=== PATIENT | female | born 1965 | race Caucasian/White ===

== ENCOUNTER 2016-07-25 10:04 | Outpatient (CLI) | payer BC ==
--- NOTE | 2016-07-26 17:39 | Mammography Report ---
DIGITAL SCREENING MAMMOGRAM: 07/25/2016 CLINICAL INDICATION: A 50-year-old, for screening. COMPARISON: 04/2013, 03/2011, 10/2009, 04/2008. TECHNIQUE: Routine CC and MLO projections were obtained of the breasts. FINDINGS: The breasts again demonstrate scattered fibroglandular densities bilaterally. Intramammary lymph nodes are stable. No suspicious masses, clustered microcalcifications, or regions of windows architect ural distortion are identified. IMPRESSION: BENIGN FINDINGS. RECOMMENDATION: ROUTINE ANNUAL SCREENING UNLESS OTHERWISE CLINICALLY INDICATED. BIRADS CATEGORY 2-BENIGN FINDINGS. STANDARD QUALIFYING STATEMENTS 1. This examination was reviewed with the aid of Computer-Aided Detection (CAD). 2. A negative or benign imaging report should not delay biopsy if clinically suspicious findings are present. Consider surgical consultation if warranted. More than 5% of cancers are not identified by i maging. 3. Dense breasts may obscure an underlying neoplasm. JOB #: [id number] EXT JOB #:[id number]
== END 2016-07-25 10:05 | disposition home or self-care (01) ==
LOC: DI.S 10:04
PROVIDERS: ATTEND Physician Assistant
DX: Z12.31 Encounter for screening mammogram for malignant neoplasm of breast (principal)
CPT/HCPCS: 77067

== ENCOUNTER 2016-11-30 12:06 | Outpatient (CLI) | payer BC ==
[2016-11-30 16:11] VITALS: BP 168/92
--- NOTE | 2016-12-01 03:35 | CARDIAC PROCEDURE NOTE ---
DATE OF SERVICE: 11/30/2016 00:00:00 PRIMARY CARE PHYSICIAN: Dr. Cecily Sandra ND. PROCEDURE: Stress echocardiogram. PROCEDURE SYMPTOMS: Fatigue, dyspnea on exertion, and heart murmur. CARDIAC RISK FACTORS: Include hyperlipidemia and diabetes. PREVIOUS CARDIAC PROCEDURES: None. CURRENT SYMPTOMATOLOGY: None. CLINICAL HISTORY: A 51-year-old female without known coronary artery disease. INITIAL RESTING VITAL SIGNS: Blood pressure 168/92, heart rate 85, height 62 inches, weight 238 pounds. PROCEDURE AND FINDINGS: The patient's identity and date were verified. Consent signed. After resting echocardiogram images were obtained, the patient performed treadmill exercise using a South protocol completing 7 minutes, 43 seconds and an estimated workload of 10.1 metabolic equivalents. Her predicted exercise time was 6 minutes 30 seconds to 7 minutes 45 seconds. Maximal blood pressure was 210/88 with a heart rate of 155 beats per minute or 93% of maximum predicted heart rate for age. The blood pressure response to exercise was within normal limits. The patient stopped because she rated exercise as very hard and was tiring. The resting ECG demonstrated normal sinus rhythm with late transition. There was less than 0.[address] segment depression. Post-exercise images were obtained on cessation of exercise. At 1 minute into recovery, she had PVCs including singles, couplets, and one 5 beat run of VT. From 2 minutes on through the remainder of the recovery time, there was no ectopy, and she had no chest pain; however, her ectopic beats were symptomatic. FINAL IMPRESSION 1. No ECG signs of ischemia, test incomplete, awaiting echocardiographic report. 2. Negative stress test clinically for angina. 3. One minute period of frequent PVCs including a 5 beat run of symptomatic nonsustained ventricular tachycardia occurring approximately one minute in recovery. 4. Hypertensive blood pressure readings. JOB #: [id number] EXT JOB #:[id number] [facility]
== END 2016-11-30 12:07 | disposition home or self-care (01) ==
LOC: DI 12:06
PROVIDERS: ATTEND Naturopath
DX: R01.2 Other cardiac sounds (principal); R53.83 Other fatigue; R06.00 Dyspnea, unspecified; R01.1 Cardiac murmur, unspecified; E78.5 Hyperlipidemia, unspecified; E11.9 Type 2 diabetes mellitus without complications; I49.3 Ventricular premature depolarization; R03.0 Elevated blood-pressure reading, without diagnosis of hypertension
CPT/HCPCS: 93351

== ENCOUNTER 2016-12-02 08:20 | Outpatient (CLI) | payer BC | END 2016-12-02 08:21 | disposition home or self-care (01) | LOC: DI 08:20 | PROVIDERS: ATTEND Naturopath | DX: R01.2 Other cardiac sounds (principal); I51.7 Cardiomegaly | CPT/HCPCS: 93306 ==

== ENCOUNTER 2017-01-09 16:00 | Outpatient (CLI) | payer BC | END 2017-01-09 16:01 | disposition home or self-care (01) | LOC: LAB 16:00 | PROVIDERS: ATTEND Orthopaedic Surgery | DX: M25.562 Pain in left knee (principal) | CPT/HCPCS: 36415; 85651; 86140 ==

== ENCOUNTER 2017-02-21 10:56 | Outpatient (CLI) | payer BC ==
--- NOTE | 2017-02-21 12:42 | XRAY Report ---
DATE OF SERVICE: 02/21/2017 COMPLETE LUMBAR SPINE: 02/21/2017 CLINICAL INDICATION: Back pain. FINDINGS: AP, lateral, oblique, coned down views of the lumbar spine demonstrate moderate degenerative disk and facet disease. There are bilateral L5 pars defects, with anterolisthesis of L5 on S1 by approximately 6 mm. There is no evidence of compression fracture. Minimal levoscoliosis is noted, which may be positional in nature. IMPRESSION: MODERATE DEGENERATIVE CHANGES. BILATERAL L5 PARS DEFECTS, WITH APPROXIMATELY 6 MM ANTEROLISTHESIS OF L5 ON S1. TD: 02/21/2017 13:40
== END 2017-02-21 10:57 | disposition home or self-care (01) ==
LOC: DI 10:56
PROVIDERS: ATTEND Orthopaedic Surgery
DX: M51.36 Other intervertebral disc degeneration, lumbar region (principal); M47.896 Other spondylosis, lumbar region; M43.06 Spondylolysis, lumbar region
CPT/HCPCS: 72110

== ENCOUNTER 2018-06-03 15:32 | Outpatient (CLI) | payer BC ==
--- NOTE | 2018-06-04 08:46 | Mammography Report ---
Reason: SCREENING MAMMO FOR MALIGNANT NEOPLASM OF THE [place] Procedure Date: 06/03/2018 Accession Number: [id number] / [id number] Procedure: RYLIE - Screening Mammo w/Jeramy CPT Code: FULL RESULT: EXAM: Screening Mammo w/Jeramy DATE: 06/03/2018 4:26 PM CLINICAL HISTORY: Screening examination. No reported risk factors. TECHNIQUE: (B) - Bilateral CC, laterally exaggerated CC, MLO views were obtained. COMPARISON: 07/25/2016 through 04/12/2011. PARENCHYMAL PATTERN: (A) - The breast(s) demonstrate(s) scattered fibroglandular densities. FINDINGS: A cluster of well-circumscribed isodense nodules in the left upper outer breast individually measuring up to 6 mm demonstrates long-term (greater than 2 years) stability and is therefore typically benign, suggestive of cysts. There are no suspicious masses, calcifications, or areas of distortion. IMPRESSION: Benign findings. BI-RADS category 2. RECOMMENDATION: (ANNUAL) - Recommend routine annual screening mammography. BI-RADS CATEGORY: (2) - Benign Findings. STANDARD QUALIFYING STATEMENTS: 1. This examination was not reviewed with the aid of Computer-Aided Detection (CAD). 2. A negative or benign imaging report should not preclude biopsy if clinically suspicious findings are present. 3. Dense breasts may obscure an underlying neoplasm. 4. This examination was reviewed with the aid of 3D breast imaging (tomosynthesis).
== END 2018-06-03 15:33 | disposition home or self-care (01) ==
LOC: DI 15:32
PROVIDERS: ATTEND Naturopath
DX: Z12.31 Encounter for screening mammogram for malignant neoplasm of breast (principal)
CPT/HCPCS: 77063; 77067

== ENCOUNTER 2018-08-14 07:26 | Outpatient (CLI) | payer BC ==
--- NOTE | 2018-08-14 14:39 | Ultrasound Report ---
Reason: UPPER ABDOMINAL PAIN,UNSPECIFIED Procedure Date: 08/14/2018 Accession Number: [id number] / [id number] Procedure: US - Abdomen Complete CPT Code: FULL RESULT: EXAM: ABDOMEN ULTRASOUND EXAM DATE: 08/14/2018 08:39 AM. CLINICAL HISTORY: UPPER ABDOMINAL Pain, unspecified. COMPARISON: 10/12/2010 pelvic ultrasound TECHNIQUE: Real-time scanning was performed with static images obtained. FINDINGS: Liver: Increased in size and heterogeneous echotexture. 18 cm. Main portal vein flow: Hepatopetal. Gallbladder: Normal. No stones, wall thickening, or sonographic Rosas's sign. Biliary System: Common bile duct measures 7 mm. No intrahepatic or extrahepatic ductal dilatation. Pancreas: Included portion is unremarkable. Kidneys: Right: 10.2 cm longitudinally. Normal. No contour-deforming mass, stones, or hydronephrosis. Left: 10.2 cm longitudinally. Slightly prominent left renal pelvis. No contour-deforming mass, stones, or hydronephrosis. Spleen: 9.1 cm. Normal in size and echotexture. Aorta and Inferior Vena Cava: Unremarkable. Free fluid: None. Other: Bilateral ureteral jets present. Prevoid bladder volume of 163 cc. Minimal post void residual volume 18 cc. IMPRESSION: Mild hepatomegaly and fatty infiltration of the liver. Otherwise negative abdomen ultrasound. RADIA
== END 2018-08-14 07:27 | disposition home or self-care (01) ==
LOC: DI 07:26
PROVIDERS: ATTEND Naturopath
DX: R10.10 Upper abdominal pain, unspecified (principal); K76.0 Fatty (change of) liver, not elsewhere classified
CPT/HCPCS: 76700

== ENCOUNTER 2018-09-09 15:37 | Outpatient (CLI) | payer BC ==
--- NOTE | 2018-09-11 10:51 | XRAY Report ---
Reason: CHRONIC L FOOT PAIN Procedure Date: 09/09/2018 Accession Number: [id number] / [id number] Procedure: XR - Foot 3 View LT CPT Code: FULL RESULT: EXAM: LEFT FOOT RADIOGRAPHY EXAM DATE: 09/09/2018 03:48 PM. CLINICAL HISTORY: Chronic left foot pain. COMPARISON: None. TECHNIQUE: 3 views. FINDINGS: Bones: Moderate inferior calcaneal and mild posterior calcaneal spurring. No fractures or bone lesions. Joints: Normal. No subluxations. Soft Tissues: Normal. No soft tissue swelling. IMPRESSION: Calcaneal spurring as described. No significant posttraumatic degenerative changes and no fracture or dislocation. RADIA
== END 2018-09-09 15:38 | disposition home or self-care (01) ==
LOC: DI 15:37
PROVIDERS: ATTEND Podiatrist
DX: M77.32 Calcaneal spur, left foot (principal)

== ENCOUNTER 2020-07-28 08:34 | Outpatient (CLI) | payer BC ==
[2020-07-28 16:28] LABS: THYROID STIMULATING HORMONE 0.8 uIU/mL (0.34-5.60)
[2020-07-28 16:31] LABS: FREE T4 (FREE THYROXINE) 1.1 ng/dL (0.58-1.64)
[2020-07-28 16:33] LABS: CHOL/HDL RATIO 4.5 (<4.4); CHOLESTEROL 305 mg/dL; HDL CHOLESTEROL 68 mg/dL; LDL CHOLESTEROL,CALCULATED 220 mg/dL; LDL/HDL RATIO 3.2 (<4.4); TRIGLYCERIDES 84 mg/dL; VLDL CHOLESTEROL 17 mg/dL
[2020-07-28 16:34] LABS: PROLACTIN 44.1 ng/mL
[2020-07-28 19:48] LABS: ESTIMATED AVERAGE GLUCOSE 111 mg/dL (70-100); HEMOGLOBIN A1c% 5.5 % (4.27-6.07)
[2020-07-29 13:47] LABS: HIV AG/AB 4TH GEN NON-REACTIVE (NON-REACTIVE)
== END 2020-07-28 08:35 | disposition home or self-care (01) ==
LOC: LAB.S 08:34
PROVIDERS: ATTEND Family Medicine
DX: Z11.4 Encounter for screening for human immunodeficiency virus [HIV] (principal); Z13.220 Encounter for screening for lipoid disorders; E03.8 Other specified hypothyroidism; E22.1 Hyperprolactinemia; R73.03 Prediabetes
CPT/HCPCS: 36415; 80061; 83036; 83721; 84146; 84439; 84443; 84480; 87389

== ENCOUNTER 2020-08-03 10:06 | Outpatient (CLI) | payer BC ==
--- NOTE | 2020-08-04 13:23 | Mammography Report ---
BILATERAL DIGITAL SCREENING MAMMOGRAM 3D/2D: 08/03/2020 CLINICAL: Family history of breast cancer. Comparison is made to exams dated: 06/03/2018 mammogram, 07/25/2016 mammogram, and 04/14/2013 mammogram - [facility]. There are scattered fibroglandular elements in both breasts. No significant masses, calcifications, or other findings are seen in either breast. There has been no significant interval change. IMPRESSION: NEGATIVE There is no mammographic evidence of malignancy. A 1 year screening mammogram is recommended. This exam was interpreted at Station ID: [id number]. NOTE: For mammograms, a report in lay terms will be sent to the patient. Approximately 15% of breast malignancies will not be visualized mammographically. In the management of a palpable breast mass, a negative mammogram must not discourage biopsy of a clinically suspicious lesion. Electronically Signed By: Titi Mack M.D. [email or web address]:08/03/2020 11:31:42 ACR BI-RADS Category 1: Negative 3341F PARENCHYMAL PATTERN: (A) - The breast(s) demonstrate(s) scattered fibroglandular densities. BI-RADS CATEGORY: (1) - 1 RECOMMENDATION: (ANNUAL) - Recommend routine annual screening mammography. [id number] 1 year screening LATERALITY: (B)
== END 2020-08-03 10:07 | disposition home or self-care (01) ==
LOC: DI.S 10:06
DX: Z12.31 Encounter for screening mammogram for malignant neoplasm of breast (principal); Z80.3 Family history of malignant neoplasm of breast

== ENCOUNTER 2021-10-19 09:24 | Outpatient (CLI) | payer SELFPAY | END 2021-10-19 09:25 | disposition home or self-care (01) | LOC: LAB.S 09:24 | PROVIDERS: ATTEND Registered Nurse | DX: Z01.89 Encounter for other specified special examinations (principal) | CPT/HCPCS: 36415 ==

== ENCOUNTER 2022-05-31 08:41 | Outpatient (CLI) | payer BC ==
[2022-05-31 14:35] LABS: BASOPHILS # (AUTO) 0.1 10^3/uL (0.0-0.1); EOSINOPHILS # (AUTO) 0.5 10^3/uL (0.0-0.7); EOSINOPHILS % (AUTO) 7.2 %; HCT - HEMATOCRIT 42.9 % (37.0-47.0); HGB - HEMOGLOBIN 13.3 g/dL (12.0-16.0); LYMPHOCYTES # (AUTO) 2.4 10^3/uL (1.5-3.5); LYMPHOCYTES % (AUTO) 33.4 %; MEAN CORPUSCULAR HEMOGLOBIN 28.7 pg (27.0-31.0); MEAN CORPUSCULAR VOLUME 92.5 fL (81.0-99.0); MEAN PLATELET VOLUME 10.3 fL (7.9-10.8); MONOCYTES # (AUTO) 0.7 10^3/uL (0.0-1.0); MONOCYTES % (AUTO) 9.3 %; NEUTROPHILS # (AUTO) 3.5 10^3/uL (1.5-6.6); NEUTROPHILS % (AUTO) 48.8 %; PLT - PLATELET COUNT 347 10^3/uL (130-450); RED BLOOD COUNT 4.64 10^6/uL (4.20-5.40); RED CELL DISTRIBUTION WIDTH 13.8 % (12.0-15.0); WHITE BLOOD COUNT 7.1 x10^3/uL (4.8-10.8)
[2022-05-31 14:54] LABS: ALBUMIN 4.4 g/dL (3.2-5.5); ALBUMIN/GLOBULIN RATIO 1.5 (1.0-2.2); BILIRUBIN,TOTAL 0.6 mg/dL (0.2-1.0); CREATININE 0.5 mg/dL (0.4-1.0); TOTAL PROTEIN 7.4 g/dL (6.7-8.2)
[2022-05-31 15:03] LABS: T4 (THYROXINE) 7.72 ug/dL (6.09-12.23)
[2022-05-31 15:07] LABS: FREE T3 2.94 pg/mL (2.5-3.9); THYROID STIMULATING HORMONE 0.68 uIU/mL (0.34-5.60)
[2022-05-31 15:08] LABS: FREE T4 (FREE THYROXINE) 0.85 ng/dL (0.58-1.64)
== END 2022-05-31 08:42 | disposition home or self-care (01) ==
LOC: LAB.S 08:41
PROVIDERS: ATTEND Registered Nurse
DX: F33.41 Major depressive disorder, recurrent, in partial remission (principal); F41.1 Generalized anxiety disorder; F90.0 Attention-deficit hyperactivity disorder, predominantly inattentive type
CPT/HCPCS: 36415; 80053; 84436; 84439; 84443; 84481; 85025

== ENCOUNTER 2022-06-29 08:00 | Outpatient (CLI) | payer BC ==
--- NOTE | 2022-06-29 14:03 | XRAY Report ---
PROCEDURE: Wrist 3 View RT INDICATIONS: RIGHT WRIST PAIN TECHNIQUE: 3 views of the wrist were acquired. COMPARISON: None. FINDINGS: Bones: Small calcifications are noted adjacent to the radial styloid. No suspicious bony lesions. Mild first CMC arthritic change. Soft tissues: No suspicious soft tissue calcifications or masses. IMPRESSION: Small calcifications adjacent to radial styloid without priors for comparison. This could represent d egenerative calcifications versus avulsion injury of indeterminate age. Recommend correlation of poin t tenderness. Reviewed by: Prema Pickard MD on 06/29/2022 2:02 PM PDT Approved by: Prema Pickard MD on 06/29/2022 2:02 PM PDT Station ID: [id number]
== END 2022-06-29 23:59 | disposition home or self-care (01) ==
LOC: DI.S 08:00
PROVIDERS: ATTEND Registered Nurse
DX: M25.831 Other specified joint disorders, right wrist (principal); M25.531 Pain in right wrist

== ENCOUNTER 2022-09-18 07:48 | Outpatient (CLI) | payer BC ==
[2022-09-18 15:37] LABS: CRP - C-REACTIVE PROTEIN 0.5 mg/dL (<0.5)
[2022-09-18 15:40] LABS: THYROID STIMULATING HORMONE 0.7 uIU/mL (0.34-5.60)
== END 2022-09-18 07:49 | disposition home or self-care (01) ==
LOC: LAB.S 07:48
PROVIDERS: ATTEND Internal Medicine
DX: E03.9 Hypothyroidism, unspecified (principal); M79.645 Pain in left finger(s); M25.562 Pain in left knee; M25.511 Pain in right shoulder; M75.30 Calcific tendinitis of unspecified shoulder
CPT/HCPCS: 36415; 84439; 84443; 85651; 86140

== ENCOUNTER 2022-10-16 12:19 | Outpatient (CLI) | payer BC ==
--- NOTE | 2022-10-16 12:41 | XRAY Report ---
PROCEDURE: Lumbar Spine Complete INDICATIONS: DISORDER OF LUMBAR SPINE/FALL TECHNIQUE: 4 views of the lumbar spine were acquired, including bilateral oblique views. COMPARISON: 03/03/2017 FINDINGS: Bones: This patient has transitional anatomy. For the purposes of this examination, the level with th e last well-developed disc space is considered to be L5-S1. By the summary scheme, there are 6 lumbar -type vertebral bodies, which are designated as T12-L5. This imaging scheme is chosen to remain consi stent with the hemorrhage can be established on the 02/21/2017 lumbar plain film. Grade 1 L5-S1 anterolisthesis is again seen, with associated bilateral pars defects. Minimal L4-L5 an terolisthesis is seen. Facet arthropathy is seen, which is most prominent inferiorly. At least moderate disc space narrowing can be seen at L5-S1. Soft tissues: Overlying bowel gas pattern is normal. No suspicious soft tissue calcifications. IMPRESSION: Focal L5-S1 degenerative change, with grade 1 anterolisthesis and associated pars defects. There is transitional lumbar anatomy, with 6 lumbar-type nonrib-bearing vertebral bodies. Reviewed by: Alden Newton MD on 10/16/2022 11:39 AM BRIAN Approved by: Alden Newton MD on 10/16/2022 11:39 AM BRIAN Station ID: [id number]
== END 2022-10-16 23:59 | disposition home or self-care (01) ==
LOC: DI.S 12:19
PROVIDERS: ATTEND Physician Assistant Medical
DX: M47.817 Spondylosis without myelopathy or radiculopathy, lumbosacral region (principal); M43.17 Spondylolisthesis, lumbosacral region

== ENCOUNTER 2022-11-13 09:54 | Outpatient (CLI) | payer BC ==
--- NOTE | 2022-11-13 13:03 | MRI Report ---
PROCEDURE: LUMBAR SPINE WO INDICATIONS: LUMBAR RADICULOPATHY TECHNIQUE: Noncontrast sagittal T1 spin echo and T2 fast echo, sagittal STIR, axial T1 and T2 fast spin echo thr ough the lumbar spine. In cases with scoliosis, additional coronal T2 fast spin echo may be performe d. COMPARISON: X-ray of the lumbar spine dated 10/16/2022. Prema FINDINGS: Image quality: Excellent. Alignment and Curvature: There is normal bony alignment. Bone Marrow: Thoracic spine marrow is of normal overall signal. No acute vertebral body compression fractures. The sacrum is only partially visualized and demonstrates hyperintense STIR signal and is partially visualized on axial T2 images which have linear low signal foci suspicious for sacral alar fractures. Spinal Cord: Conus medullaris terminates at the L1 level. Visualized cord demonstrates normal signa l and size. Paraspinous Soft Tissues: No paravertebral masses. T12-L1: No disc bulge. The foramina and central canal are patent. L1-L2: No disc bulge. The foramina and central canal are patent. L2-L3: No disc bulge. The foramina and central canal are patent. L3-L4: The disc is mildly desiccated. Small central annular tear. No significant disc bulge. No for aminal or central canal stenosis. L4-L5: The disc is mildly desiccated. No significant disc bulge. The facets are hypertrophic. Moder ate bilateral foraminal stenosis. Epidural lipomatosis. Mild central canal stenosis. L5-S1: Bilateral pars defects of L5 with grade 1 anterolisthesis. Diffuse disc bulge. Facet hypertr ophy. Mild right and moderate left foraminal stenosis. Epidural lipomatosis. Severe central canal laureen nosis primarily due to epidural lipomatosis. IMPRESSION: 1. Cervical spondylosis with degenerative disc disease most prominent at L4-5 and L5-S1 as detailed a obinna. 2. Severe central canal stenosis at L5-S1 is primarily due to epidural lipomatosis. 3. Findings suspicious for sacral alar fractures. Recommend MRI of the sacrum. 4. No abnormal cord signal in the visualized lower spinal cord. Reviewed by: Anthony Sanchez on 11/13/2022 1:02 PM PDT Approved by: Anthony Sanchez on 11/13/2022 1:02 PM PDT Station ID: [id number]
== END 2022-11-13 09:55 | disposition home or self-care (01) ==
LOC: DI 09:54
PROVIDERS: ATTEND Internal Medicine
DX: M47.816 Spondylosis without myelopathy or radiculopathy, lumbar region (principal); M48.07 Spinal stenosis, lumbosacral region; E88.2 Lipomatosis, not elsewhere classified

== ENCOUNTER 2022-11-15 07:59 | Outpatient (CLI) | payer BC | END 2022-11-15 08:00 | disposition home or self-care (01) | LOC: LAB.S 07:59 | PROVIDERS: ATTEND Internal Medicine | DX: E03.9 Hypothyroidism, unspecified (principal) | CPT/HCPCS: 36415; 84481 ==

== ENCOUNTER 2022-12-05 08:15 | Outpatient (CLI) | payer BC ==
[2022-12-05 15:21] LABS: RHEUMATOID FACTOR NEGATIVE (Negative)
[2022-12-05 15:31] LABS: ALBUMIN 4.5 g/dL (3.2-5.5); ALBUMIN/GLOBULIN RATIO 1.6 (1.0-2.2); BILIRUBIN,TOTAL 0.3 mg/dL (0.2-1.0); CALCIUM 9.5 mg/dL (8.5-10.3); CREATININE 0.5 mg/dL (0.6-1.3); CRP - C-REACTIVE PROTEIN 0.5 mg/dL (<0.5); PHOSPHORUS 3.8 mg/dL (2.5-5.0); POTASSIUM 4.8 mmol/L (3.5-4.5); TOTAL PROTEIN 7.3 g/dL (6.4-8.9); URIC ACID 4.7 mg/dL (2.3-6.6)
[2022-12-05 15:36] LABS: FERRITIN 37.5 ng/mL (11.0-306.8)
[2022-12-05 20:15] LABS: ESTIMATED AVERAGE GLUCOSE 128 mg/dL (70-100); HEMOGLOBIN A1c% 6.1 % (4.27-6.07)
[2022-12-06 04:09] LABS: VITAMIN D 25-HYDROXY 40.8 ng/mL (30.0-100.0)
[2022-12-06 10:09] LABS: CALCIUM IONIZED SERUM 4.8 mg/dL (4.5-5.6)
[2022-12-06 16:08] LABS: ANTI-DNA (DS) AB QN 1 IU/mL (0-9)
[2022-12-07 15:08] LABS: ANTINUCLEAR ANTIBODIES IFA Negative (.)
[2022-12-07 20:08] LABS: CYCLIC CITRULLINATED PEP IGG/A 0 units (0-19)
== END 2022-12-05 08:16 | disposition home or self-care (01) ==
LOC: LAB.S 08:15
PROVIDERS: ATTEND Internal Medicine
DX: M11.80 Other specified crystal arthropathies, unspecified site (principal); R53.83 Other fatigue; M65.20 Calcific tendinitis, unspecified site; M13.862 Other specified arthritis, left knee; M25.579 Pain in unspecified ankle and joints of unspecified foot; Z13.1 Encounter for screening for diabetes mellitus; M67.854 Other specified disorders of tendon, left hip; L20.9 Atopic dermatitis, unspecified
CPT/HCPCS: 36415; 80053; 81374; 82306; 82330; 82728; 83036; 83540; 83735; 84100; 84466; 84550; 86038; 86140; 86200; 86225; 86430

== ENCOUNTER 2023-01-10 08:22 | Outpatient (CLI) | payer BC ==
[2023-01-10 15:41] LABS: THYROID STIMULATING HORMONE 0.66 uIU/mL (0.34-5.60)
[2023-01-11 08:09] LABS: ESTRADIOL <5.0 pg/mL (.); PROGESTERONE 0.2 ng/mL (.)
[2023-01-11 18:07] LABS: FREE TESTOSTERONE(DIRECT) 2.3 pg/mL (0.0-4.2); TESTOSTERONE 7 ng/dL (4-50)
== END 2023-01-10 08:23 | disposition home or self-care (01) ==
LOC: LAB.S 08:22
PROVIDERS: ATTEND Internal Medicine
DX: E06.3 Autoimmune thyroiditis (principal); N95.9 Unspecified menopausal and perimenopausal disorder
CPT/HCPCS: 36415; 82670; 83001; 84144; 84402; 84403; 84439; 84443; 84481

== ENCOUNTER 2023-04-24 07:56 | Outpatient (CLI) | payer BC ==
[2023-04-24 15:23] LABS: BASOPHILS # (AUTO) 0.1 10^3/uL (0.0-0.1); BASOPHILS % (AUTO) 0.9 %; EOSINOPHILS # (AUTO) 0.4 10^3/uL (0.0-0.7); EOSINOPHILS % (AUTO) 4.5 %; HGB - HEMOGLOBIN 13.3 g/dL (12.0-16.0); LYMPHOCYTES # (AUTO) 2.7 10^3/uL (1.5-3.5); LYMPHOCYTES % (AUTO) 28.2 %; MEAN CORPUSCULAR HEMOGLOBIN 28.5 pg (27.0-31.0); MEAN CORPUSCULAR HGB CONC 30.9 g/dL (32.0-36.0); MEAN CORPUSCULAR VOLUME 92.1 fL (81.0-99.0); MEAN PLATELET VOLUME 9.4 fL (7.9-10.8); MONOCYTES # (AUTO) 0.8 10^3/uL (0.0-1.0); MONOCYTES % (AUTO) 7.7 %; NEUTROPHILS # (AUTO) 5.6 10^3/uL (1.5-6.6); NEUTROPHILS % (AUTO) 58.2 %; PLT - PLATELET COUNT 391 10^3/uL (130-450); RED BLOOD COUNT 4.67 10^6/uL (4.20-5.40); RED CELL DISTRIBUTION WIDTH 13.9 % (12.0-15.0); WHITE BLOOD COUNT 9.7 x10^3/uL (4.8-10.8)
[2023-04-24 16:47] LABS: THYROID STIMULATING HORMONE 3.21 uIU/mL (0.34-5.60)
== END 2023-04-24 07:57 | disposition home or self-care (01) ==
LOC: LAB.S 07:56
PROVIDERS: ATTEND Internal Medicine
DX: E03.9 Hypothyroidism, unspecified (principal); I10 Essential (primary) hypertension; R53.83 Other fatigue; Z79.899 Other long term (current) drug therapy
CPT/HCPCS: 36415; 84439; 84443; 84481; 85025

== ENCOUNTER 2023-05-11 08:01 | Outpatient (CLI) | payer BC ==
--- NOTE | 2023-05-11 20:16 | Ultrasound Report ---
PROCEDURE: Abdomen Complete INDICATIONS: LUQ ABD PAIN TECHNIQUE: Real-time scanning was performed of the abdominal and retroperitoneal organs, with image documentatio n. COMPARISON: MRI 11/13/2022 FINDINGS: Liver: Liver is normal in size and homogeneous in echotexture. Simple hepatic cyst measuring 1.8 x 2.1 cm. Gallbladder: Unremarkable. Biliary ducts: Intrahepatic bile ducts are non-dilated. Extrahepatic bile duct caliber measures 8 m m. Normal is 6-7 mm or less in diameter, or 10 mm or less post-cholecystectomy. Pancreas: Visualized portions of the pancreas are sonographically normal. Spleen: Spleen is normal in size and homogeneous in echotexture. Kidneys: Kidneys are normal in size and echotexture. Right kidney measures 11.1 cm long; left kidne y measures 10.5 cm long. Left-sided pelvocaliectasis versus mild hydronephrosis. No solid masses. No complex renal cystic lesions which require follow-up. Aorta: Visualized aorta is normal in caliber at less than 3 cm. Iliacs: Proximal common iliac arteries are normal in caliber at less than 2.5 cm. IVC: Intrahepatic inferior vena cava is patent. Miscellaneous: No free abdominal fluid. IMPRESSION: Left renal pelvocaliectasis versus mild hydronephrosis. Correlate with with hematuria to exclude an o bstructing stone. Reviewed by: Thai Mathews MD on 05/11/2023 8:15 PM PDT Approved by: Thai Mathews MD on 05/11/2023 8:15 PM PDT Station ID: [id number]
== END 2023-05-11 08:02 | disposition home or self-care (01) ==
LOC: DI 08:01
PROVIDERS: ATTEND Internal Medicine
DX: R10.12 Left upper quadrant pain (principal); R93.422 Abnormal radiologic findings on diagnostic imaging of left kidney

== ENCOUNTER 2023-08-24 08:20 | Outpatient (CLI) | payer BC ==
[2023-08-24 16:19] LABS: THYROID STIMULATING HORMONE 0.49 uIU/mL (0.34-5.60)
== END 2023-08-24 08:21 | disposition home or self-care (01) ==
LOC: LAB.S 08:20
PROVIDERS: ATTEND Internal Medicine
DX: E03.2 Hypothyroidism due to medicaments and other exogenous substances (principal)
CPT/HCPCS: 36415; 84439; 84443; 84481